=== PATIENT | female | born 1955 | race Caucasian/White ===

== ENCOUNTER 2018-01-31 18:53 | Emergency (ER) | payer OTHER, SELFPAY ==
[~2018-01-31] VITALS: Ht 162.6 cm; Wt 62.7 kg
[2018-01-31] MEDS ORDERED: LABETALOL 5MG/ML, 20ML ONE (19:28)
[2018-01-31] MEDS ORDERED: LABETALOL 5MG/ML, 20ML IVPush ONE (19:30)
[2018-01-31] MEDS ORDERED: SODIUM CHLORIDE FLUSH 10ML SYR IVF ONE (19:30)
[2018-01-31] MEDS ORDERED: LOSA25TA5 PO (19:34)
[2018-01-31 19:50] LABS: BASOPHILS # (AUTO) 0.03 x10^3/uL (0-0.1); BASOPHILS % (AUTO) 1 % (0-1); EOSINOPHILS # (AUTO) 0.12 x10^3/uL (0-0.4); EOSINOPHILS % (AUTO) 2 % (1-7); LYMPHOCYTES # (AUTO) 1.67 x10^3/uL (1-3.4); LYMPHOCYTES % (AUTO) 32 % (22-44); MD NO; MEAN CORPUSCULAR HEMOGLOBIN 33.4 pg (27.0-34.8); MEAN CORPUSCULAR HGB CONC 34.2 g/dL (32.4-35.8); MEAN CORPUSCULAR VOLUME 97.7 fL (80-100); MEAN PLATELET VOLUME 8.2 fL (7.4-10.4); MONOCYTES # (AUTO) 0.38 x10^3/uL (0.2-0.8); MONOCYTES % (AUTO) 7 % (2-9); NEUTROPHILS # (AUTO) 2.96 x10^3/uL (1.8-6.8); NEUTROPHILS % (AUTO) 57 % (42-75); PLATELET COUNT 200 x10^3/uL (130-400); RED BLOOD COUNT 4.74 x10^6/uL (3.82-5.3); RED CELL DISTRIBUTION WIDTH 13.1 % (9.6-15.2)
[2018-01-31 20:02] LABS: ALANINE AMINOTRANSFERASE 25 U/L (12-78); ALBUMIN 3.7 g/dL (3.4-5.0); ANION GAP 6 mmol/L (5-15); CHLORIDE 109 mmol/L (98-107); CREATININE 0.82 mg/dL (0.55-1.02)
[2018-01-31 20:04] LABS: ALKALINE PHOSPHATASE 69 U/L (45-117); BILIRUBIN,TOTAL 0.7 mg/dL (0.2-1.0); TOTAL PROTEIN 6.9 g/dL (6.4-8.2)
[2018-01-31 20:19] VITALS: BP 170/110
== END 2018-01-31 20:41 | disposition home or self-care (01) ==
LOC: ED 19:39
DX: I10 Essential (primary) hypertension (principal)
CPT/HCPCS: 36415; 71045; 80053; 83735; 85025; 93005; 96374; 99285

== ENCOUNTER 2019-01-31 21:01 | Emergency (ER) | payer OTHER ==
[~2019-01-31 21:01] MED LIST: LOSA25TA25 PO
[2019-01-31 21:14] VITALS: BP 146/96
== END 2019-01-31 23:14 | disposition home or self-care (01) ==
LOC: ED 23:08
DX: G89.11 Acute pain due to trauma (principal); M25.572 Pain in left ankle and joints of left foot; W01.0XXA Fall on same level from slipping, tripping and stumbling without subsequent striking against object, initial encounter; Y93.89 Activity, other specified; Y92.410 Unspecified street and highway as the place of occurrence of the external cause; Y99.8 Other external cause status
CPT/HCPCS: 99283

== ENCOUNTER 2020-03-08 20:20 | Emergency (ER) | payer OTHER ==
[~2020-03-08] VITALS: Ht 162.6 cm; Wt 74.7 kg
[2020-03-08 20:31] VITALS: BP 174/128
[2020-03-08] MEDS ORDERED: LIDOCAINE-MPF 2% ,5ML ONE (21:18)
[2020-03-08] MEDS ORDERED: IBUPROFEN 600 MG TABLET ONE (21:18)
[2020-03-08] MEDS ORDERED: DIPH,PERTUSS(ACELL),TET VAC/PF 0.5 ML IM-VACC ONE ×2 (21:18→21:30)
[2020-03-08] MEDS ORDERED: IBUPROFEN 600 MG TABLET PO ONE (21:30)
[2020-03-08] MEDS ORDERED: LIDOCAINE-MPF 1%, 5ML INFIL ONE (21:30)
[2020-03-08] MEDS ORDERED: NEOSPORIN OINT. PKT 1 PACKET ONE (22:06)
[2020-03-08] MEDS ORDERED: LIDOCAINE-MPF 1%, 5ML ONE (22:36)
== END 2020-03-08 22:55 | disposition home or self-care (01) ==
LOC: ED 22:21
DX: S61.412A Laceration without foreign body of left hand, initial encounter (principal); S80.212A Abrasion, left knee, initial encounter; I10 Essential (primary) hypertension; Z87.891 Personal history of nicotine dependence; W18.31XA Fall on same level due to stepping on an object, initial encounter; Y93.01 Activity, walking, marching and hiking; Y92.488 Other paved roadways as the place of occurrence of the external cause; Y99.8 Other external cause status
CPT/HCPCS: 12002; 90471; 90715; 99283